=== PATIENT | female | born 1995 | race Caucasian/White ===

== ENCOUNTER 2018-12-13 20:48 | Inpatient (IN) | payer BC, MEDICAID ==
--- NOTE | 2018-12-13 21:38 | ED ---
Psychiatric Complaint - HPI Summary HPI Summary: Patient is a 23 y/o F presenting to ED for SI. Patient's parents are in town, patient states she was "not happy" as a result. She states that she was not able to speak to her parents, she is unsure if she can trust her parents, and if "they want what is best for me". Patient is not a student, does not work. She states, "I just feel really sad, that no one likes me and I wasn't meant to be born". Patient has had these feelings for the past few days. She denies previous episodes of similar Sx.(Father later reports that pt has prior attempt with overdose). She was brought to ED by father, she claims to be unsure as to why he brought her here. SI reported. When patient was asked about plan of suicide, patient is not responsive to question and stares at provider. Pt whispers other answers to questions. No Hx of asthma, thyroid problems, diabetes. PMHx of bipolar disorder, and patient is followed by Dr. Lazaro. PSHx of appendectomy. Patient takes lithium, seroquel, rexulti. Patient denies smoking, alcohol usage, substance usage. FMHx of mental health issues, grandmother on father's side by suicide. Per triage, "per father, patient has been having suicidal thoughts today with history of same and x1 attempt. father states she said she didn't want to be here, she didn't want to be in her body. patient is not very forthcoming with information, flat affect. states she's bipolar." Home medications and allergies are reviewed. Patient is agreeable with father coming into ED, she does not bar anyone from coming into ED. Home Medications Brexpiprazole (NF) [Rexulti 3 mg tab (NF)] 3 mg PO DAILY 12/13/18 [History Confirmed 12/13/18] [place] Carbonate TAB* 600 mg PO DAILY 12/13/18 [History Confirmed 12/13/18] QUEtiapine TAB* [Seroquel 300 MG TAB*] 900 mg PO DAILY 12/13/18 [History Confirmed 12/13/18] buPROPion TAB* [Wellbutrin TAB*] 50 mg PO DAILY 12/13/18 [History Confirmed ] Allergies Allergy/AdvReac Type Severity Reaction Status Date / Time shellfish derived Allergy Hives Verified 12/13/18 21:02 - History Of Current Complaint Chief Complaint: EDSuicidal Hx Obtained From: Patient, Family/Renal Social Worker - father Hx From Patient Unobtainable Due To: Altered Mental Status - mental affect, only stares at provider for many questions. LEVEL 5 CAVEAT ?: No Onset/Duration: Lasting Days, Still Present Timing: Days - past few days Severity Initially: Moderate Severity Currently: Severe Character: Depressed Aggravating Factor(s): Nothing Alleviating Factor(s): Nothing Associated Signs And Symptoms: Positive: Social Withdrawal Related History: Positive For: Prior Psychiatric Issues - bipolar, hx prior suicide attempt Has Suicidal: Reports: Thoughts, With A Plan - when questioned about plan, patient is unresponsive to provider., Has Prior Attempt(s) Recent Stressor(s): parents visiting from [place] - Risk Factor(s) Completed Suicide Risk Factors: White [place], Past Suicide Attempt - Allergies/Home Medications Allergies/Adverse Reactions: Allergies Allergy/AdvReac Type Severity Reaction Status Date / Time aripiprazole [From [facility]] Allergy See Comment Verified 12/14/18 16:30 shellfish derived Allergy Hives Verified 12/13/18 21:02 Home Medications: Home Medications Brexpiprazole (NF) [Rexulti 3 mg tab (NF)] 3 mg PO DAILY 12/13/18 [History Confirmed 12/13/18] [place] Carbonate TAB* 600 mg PO DAILY 12/13/18 [History Confirmed 12/13/18] QUEtiapine TAB* [Seroquel 300 MG TAB*] 900 mg PO DAILY 12/13/18 [History Confirmed 12/13/18] buPROPion TAB* [Wellbutrin TAB*] 50 mg PO DAILY 12/13/18 [History Confirmed ] PMH/Surg Hx/FS Hx/Imm Hx Previously Healthy: No Endocrine/Hematology History: Denies: Hx Diabetes, Hx Thyroid Disease Respiratory History: Denies: Hx Asthma Psychiatric History: Reports: Hx Bipolar Disorder, Hx Suicide Attempt - Surgical History Surgery Procedure, Year, and Place: appendectormy Infectious Disease History: No Infectious Disease History: Denies: Traveled Outside the [place] in Last 30 Days - Family History Known Family History: Positive: Other - FMHx of suicide, grandmother on father' s side - Social History Alcohol Use: None Substance Use Type: Reports: None Smoking Status (MU): Never Smoked Tobacco Review of Systems Negative: Fever - on vitals, temp is 98.8 F Psychological: Other - POSITIVE - SI All Other Systems Reviewed And Are Negative: No - Comments Additional Review of Systems Comments: LEVEL 5 CAVEAT. Pt stares at provider for many questions. Whispers answers to other questions. Physical Exam - Summary Physical Exam Summary: Appearance: Well-appearing, no pain distress, well-nourished, stares, tears roll down face when asked questions, whispers some answers Skin: Warm, color reflects adequate perfusion, dry Head: Normal Head/Face inspection, atraumatic Eyes: Conjunctiva clear ENT: Normal inspection Neck: Supple, no nodes, no JVD Respiratory: Lungs clear, normal breath sounds, no respiratory distress Cardio: RRR, No murmur, pulses normal, brisk capillary refill Abdomen: Soft, nontender Bowel sounds: Present Musculoskeletal: Strength Intact/ROM intact, no calf tenderness, no edema. Psychological: Patient stares ahead while talking, has a flat affect. She whispers when talking and is slow to respond to questions. She is reluctant to answer questions. +SI, no HI. Tearful Neuro: Alert, muscle tone normal, no focal deficit, ambulates without limp Triage Information Reviewed: Yes Vital Signs On Initial Exam: Initial Vitals Temp Pulse Resp BP Pulse Ox 98.8 F 92 16 133/80 99 12/13/18 20:54 12/13/18 20:54 12/13/18 20:54 12/13/18 20:54 12/13/18 20:54 Vital Signs Reviewed: Yes Diagnostics - Vital Signs Vital Signs Temp Pulse Resp BP Pulse Ox 12/13/18 20:54 98.8 F 92 16 133/80 99 - Laboratory Result Diagrams: 12/13/18 22:00 12/13/18 22:00 Lab Statement: Any lab studies that have been ordered have been reviewed, and results considered in the medical decision making process. Re-Evaluation - Re-Evaluation First Eval Re-Evaluation Time: 22:46 Change: Unchanged Comment: Patient is medically cleared at this time, changed from 1 to 1 observation to constant. Second Eval Re-Evaluation Time: 01:15 Change: Unchanged Comment: Father remains with pt. Pt continues with bland affect, minimal verbalization. Father and pt advised of mental health process, and mental hygiene law. Pt remains on constant observation. Course/Dx - Course Course Of Treatment: Patient is a 23 y/o F presenting to ED for SI. Patient's parents are in town, patient states she was "not happy" as a result. She states that she was not able to speak to her parents, she is unsure if she can trust her parents, and if "they want what is best for me". Patient is not a student, does not work. She states, "I just feel really sad, that no one likes me and I wasn't meant to be born". Patient has had these feelings for the past few days. She denies previous episodes of similar Sx, however father reports past suicide attempt and long hx treatment for bipolar. She was brought to ED by father, she claims to be unsure as to why he brought her here. SI reported, when patient was asked about plan of suicide, patient is not responsive, just stares at provider. No Hx of asthma, thyroid problems, diabetes. PMHx of bipolar disorder, patient is followed by Dr. Lazaro. PSHx of appendectomy. Patient takes lithium, seroquel, rexulti. Patient denies smoking, alcohol usage, substance usage. FMHx of mental health issues, grandmother on father's side by suicide. Per triage, "per father, patient has been having suicidal thoughts today with history of same and x1 attempt. father states she said she didn't want to be here, she didn't want to be in her body. patient is not very forthcoming with information, flat affect. states she's bipolar.". On physical exam, Patient stares ahead while talking, has a flat affect. She whispers when talking and is slow to respond to questions. She is reluctant to answer questions. Is tearful. Labs showed glucose 123, TSH 0.61, Beta HCG < 0.6. Tox screen showed [place] < 0.10. Patient is medically cleared at this time, changed from 1 to [address] Suh is to be admitted involuntary status for depression and bipolar disease. Pt has remained calm in the ED. Once on U, pt will be in locked unit, in a safe room. Pt may be changed from constant observation to q 15 minute checks. - Differential Dx/Clinical Impression Differential Diagnosis/HQI/PQRI: Positive: Acute Psychosis, Bipolar Disorder, Depression, Suicidal Ideation Provider Diagnosis: Suicidal ideation, Depression, History of bipolar disorder Discharge - Sign-Out/Discharge Documenting (check all that apply): Patient Departure - Discharge Plan Condition: Stable Disposition: PSYCHIATRIC FACILITY-[facility] - Billing Disposition and Condition Condition: STABLE Disposition: Psychiatric Facility [facility] - Attestation Statements Document Initiated by Scribe: Yes Documenting Scribe: ORTIZ ISAACS Provider For Whom Ellen is Documenting (Include Credential): JAZZY RDZ MD Scribe Attestation: ORTIZ Narayan, scribed for JAZZY RDZ MD on 12/24/18 at 0716. Scribe Documentation Reviewed: Yes Provider Attestation: The documentation as recorded by the ORTIZ beltrán accurately reflects the service I personally performed and the decisions made by me, JAZZY RDZ MD Status of Scribe Document: Viewed
[2018-12-13 22:08] LABS: ABS Basophils 0 10^3/ul (0-0.2); ABS Eosinophils 0.1 10^3/ul (0-0.6); ABS Lymphocytes 2.2 10^3/ul (1.0-4.8); ABS Monocytes 0.4 10^3/ul (0-0.8); ABS Neutrophils 4.5 10^3/ul (1.5-7.7); ABS Nucleated RBC 0 10^3/ul; Hematocrit 40 % (33-41); Hemoglobin 13.4 g/dL (12.0-16.0); Lymphocyte % 29.9 %; Mean Corpuscular HGB Conc 33 g/dL (31-36); Mean Corpuscular Hemoglobin 31 pg (27-31); Mean Corpuscular Volume 94 fL (80-97); Mean Platelet Volume 8.8 fL (7.4-10.4); Nucleated Red Blood Cells % 0; Platelet Count 248 10^3/uL (150-450); Red Blood Count 4.27 10^6 /uL (3.70-4.87); Red Cell Distribution Width 14 % (10.5-15); White Blood Count 7.2 10^3/uL (3.5-10.8)
[2018-12-13 22:22] LABS: ALT 8 U/L (7-52); AST 14 U/L (13-39); Albumin/Globulin Ratio 1.3 (1-3); Alkaline Phosphatase 62 U/L (34-104); Anion Gap 8 mmol/L (2-11); BUN/Creatinine Ratio 18.3 (8-20); Blood Urea Nitrogen 17 mg/dL (6-24); CO2 Carbon Dioxide 25 mmol/L (22-32); Calcium 9.5 mg/dL (8.6-10.3); Chloride 107 mmol/L (101-111); EGFR African American 90.4 (>60); EGFR Non-African American 74.7 (>60); Globulin 3.2 g/dL (2-4); Glucose 123 mg/dL (70-100); Potassium 4.2 mmol/L (3.5-5.0); Sodium 140 mmol/L (135-145); Total Protein 7.2 g/dL (6.4-8.9)
[2018-12-13 22:30] LABS: HCG Pregnancy < 0.60 mIU/mL
[2018-12-13 22:39] LABS: Acetaminophen < 15 mcg/mL; Alcohol < 10 mg/dL (<10); Lithium < 0.10 mmol/L (0.6-1.2); Salicylate < 2.50 mg/dL (<30)
[2018-12-13 22:53] LABS: TSH (Thyroid Stimulating Horm) 0.61 mcIU/mL (0.34-5.60)
[2018-12-14] MEDS ORDERED: Al Hydrox/Mg Hydrox/Simet LIQ* 30 ML UDC PO PRN (04:35)
[2018-12-14] MEDS: Vitamin THERAPEUTIC TAB PO SCH (10:38)
[2018-12-14] MEDS: Acetaminophen TAB* 325 MG PO PRN (22:07)
[2018-12-14] MEDS: QUEtiapine TAB* 300 MG PO SCH (22:23)
[2018-12-14] MEDS: Lithium Carbonate TAB* 300 MG PO SCH (22:24)
--- NOTE | 2018-12-15 00:14 | HP ---
HISTORY AND PHYSICAL: DATE OF ADMISSION: 12/14/18 IDENTIFYING DATA: Claudette is a 23-year-old, single, employed, domiciled, female, who was referred by her father after she expressed suicidal ideation and she could not contract for safety. She was admitted on emergency status. SOURCE OF INFORMATION: The patient is uncooperative with answering questions. This note is based solely on review of admission data. HISTORY OF PRESENT ILLNESS: The patient's aunt who lives in [facility] became aware that the patient was not doing well, that she had not been sleeping for days, had been acting manic, going on shopping spree, getting numerous tattoos and not paying her rent and not going to work. She informed the patient's father who lives in [place]. The patient's father came to [facility] and found the patient rather depressed, tearful, not talking to him until yesterday when she told her father that "she was leaving because she cannot live in her body anymore," which prompted the father to give her the choice to either him calling 911 or driving her to the hospital. The patient reportedly agreed to have her father transport her. The patient's father reported to the program strategist that the patient has a long history of mental illness and that she is diagnosed with bipolar disorder. She has had numerous hospitalizations and she has a history of nonadherence with keeping appointments with therapists and psychiatrists and taking prescribed medications. PAST PSYCHIATRIC HISTORY: The patient's father reported that the patient has had 4 inpatient psychiatric admission starting at age 21. The most recent admission was last January 2018. The patient has had 2 admissions at [facility] in [place] and 2 others at [facility]. She had also attended a [facility] program in [place], [place] and a long-term facility called [facility] in [place], [place]. The patient has outpatient care at [facility] with Dr. Braden Boo. She is prescribed Rexulti 3 mg daily, lithium 600 mg p.o. b.i.d., quetiapine 600 mg at bedtime, and Wellbutrin XL 300 mg daily. The patient's father is aware that the patient took herself off medications completely about 2 weeks ago and that she had missed several appointments with the psychiatrist. SUICIDE/HOMICIDE HISTORY: The patient's father relates that as a teen, she had a history of self-cutting behavior and one previous suicide attempt by taking an overdose of Tylenol. The patient's father was not aware of any history of trauma or abuse. PAST MEDICAL HISTORY: The patient's father denies that she has any active medical problems, any history of head trauma with loss of consciousness, seizures, or surgeries. He does not believe that she has a primary care physician locally. REVIEW OF MEDICAL SYMPTOMS: Negative. PHYSICAL EXAMINATION The patient declined. We will re-attempt. FAMILY HISTORY: There is no given family history of psychiatric illnesses or completed suicide. SUBSTANCE ABUSE HISTORY: Unknown. Urine toxicology was negative. PERSONAL AND SOCIAL HISTORY: The patient's parents were . The patient' s mother when the patient was about 2 years old. The patient's father subsequently remarried. The patient grew up with her father, stepmother and a stepsister. The patient graduated from high school and completed 2 years of college before having a psychotic break that led to her first hospitalization. She was diagnosed with bipolar at the time and she has been recurrently in crisis since that time. 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 MENTAL STATUS EXAMINATION: A full mental status exam could not be completed given the patient's lack of cooperation. She is an averagely built 23-year-old white female with a nose ring and some lesion of facial acne and dark hair. She makes intense eye contact. She appears to be responding to internal stimuli as evidenced by her laughing to herself sometimes. She exhibits some degree of psychomotor retardation. In rare instances, she nodded to answer questions. Her affect is irritable, mood is dysphoric. She is alert, unable to assess orientation. She did not answer question about suicidality or homicidality. She, at some point, got up and left the interview room without explanation. SUMMARY: A 23-year-old female with extensive past psychiatric history, previous psychiatric hospitalizations, previous diagnosis of bipolar disorder, history of nonadherence with outpatient psychiatric treatment, who was referred by her father because of suicidal ideation and inability to contract for safety. Medical history is unremarkable. There is no information as to whether or not the patient uses any substance. Her urine drug screen was negative for all the tested substances. There is no given family history of psychiatric illnesses or completed suicide.Stressors are unclear but they should include the patient's history of non-adherence to psychiatric treatment. DIAGNOSTIC IMPRESSIONS: Bipolar 1 disorder, current episode, mixed, severe, with psychotic features. TREATMENT PLAN: Admit to mental health unit, observation level 15-minute checks. Legal status is emergency. Initiate comprehensive milieu, individual and group psychotherapeutic support. Medication management will involve restarting the patient on lithium immediately and confirming the rest of her prescribed medication with Dr. Boo on Sunday. Discharge planning will involve coordination of aftercare with her providers at [facility] and with relatives. [id number]/[facility] #: [id number] ANDRES
[2018-12-15 08:57] LABS: HDL Cholesterol 48.5 mg/dL
[2018-12-15] MEDS ORDERED: BREXPIPRAZOLE 3 MG PO SCH (09:00)
[2018-12-15 09:30] LABS: TSH (Thyroid Stimulating Horm) 1.35 mcIU/mL (0.34-5.60)
[2018-12-15] MEDS: Lithium Carbonate TAB* 300 MG PO SCH ×2 (13:18→22:00)
[2018-12-15] MEDS: Vitamin THERAPEUTIC TAB PO SCH (13:18)
[2018-12-15] MEDS: QUEtiapine TAB* 300 MG PO SCH (21:59)
[2018-12-16] MEDS: Acetaminophen TAB* 325 MG PO PRN (04:44)
[2018-12-16] MEDS ORDERED: BREXPIPRAZOLE 3 MG PO SCH (09:00)
[2018-12-16] MEDS: Vitamin THERAPEUTIC TAB PO SCH (11:10)
[2018-12-16] MEDS: Lithium Carbonate TAB* 300 MG PO SCH ×2 (11:11→21:18)
--- NOTE | 2018-12-16 15:49 | PN ---
Subjective - Subjective Date of Service: 12/16/18 Service Type: 62096 Hosp care 25 min moderate complexity Subjective: Patient irritable and initially refusing to meet with treatment providers. She agreed to meet about "how to get out of here." She endorses anger at her parents for bringing to a hospital as she vowed to never do so again. She states "I'm not bipolar!" When asked about her mood, she states "my boyfriend was supposed to visit today." She denies alcohol or drug use, despite collateral information to the contrary. She endorses need for nicotine replacement due to vaping "a lot." She has yet to provide a urine specimen. During conversation, patient is labile and responds to internal stimuli. She denies history of abuse or trauma. She denies offer of medication adjustments, other than desire for adderall for concentration and distractibility. Objective - General Observations Appearance: Disheveled Appears Stated Age: Yes Stature: Thin Posture: WNL Eye Contact: Avoidant Behavior/Activity: Peculiar - Interaction Observations Attitude Towards Examiner: Defensive, Evasive, Mistrustful Stated Mood: Elevated Affect: Incongruent Speech Pattern/Tone: Delayed, Quiet Volume Thought Process: Filght of Ideas, Impoverished Perception: WNL Thought Content: Paranoid, Grandiose Thought Process: Lethality: Paranoid Ideation Hallucination Type: Auditory Delusion Type: Denies - Cognitive Function Orientation: A&O x 4 Level of Consciousness: Alert Cognition: WNL Estimated Intelligence: Normal Insight: Difficulty Acknowledging Presence of Psyciatric Problems Judgment Within Normal Limits: No Ability to Make Reasonable Decisions: Serverely Impaired - Medication Compliance Cooperative with Inpatient Medication Regimen: Partial - Group Participation Participates in Group Activities: No Assessment - Assessment Merits Inpatient Hospitalization: For Immediate Safety, For Stabilization Inpatient DSM-V Dx: F31.64 Clinical Impression: 23yo wf with extensive psychiatric history and multiple admissions in [facility] due to bipolar I d/o. She has been non-adherent to outpatient treatment and was referred to ED by her father due to suicidal ideation. She is grossly disorganized and lacks capacity to make informed medical decisions. She merits hospitalization for immediate safety and stabilization. Plan - Plan Treatment Plan: Name: JUN WHEELER Birthdate: 1995 [id number] continue acute intensive psychiatric treatment. DC rexulti due patient's refusal and multiple antipsychotics, add lorazepam 0.5mg Continued Medication Management: Start Medication Medications: Current Medications Acetaminophen (Tylenol Tab*) 650 mg PO Q4H PRN PRN Reason: PAIN or TEMP > 101 F Last Admin: 12/16/18 04:44 Dose: 650 mg Al Hydrox/Mg Hydrox/Simethicone (Maalox Plus*) 30 ml PO Q4H PRN PRN Reason: INDIGESTION [place] Carbonate ([place] Carbonate Tab*) 600 mg PO BID [facility] Last Admin: 12/16/18 11:11 Dose: Not Given Multivitamins (Theragran Tab*) 1 tab PO DAILY [facility] Last Admin: 12/16/18 11:10 Dose: 1 tab Nicotine (Nicotine Patch 21 Mg/24 Hr*) 1 patch TRANSDERM DAILY [facility] Nicotine Polacrilex (Nicotine Gum*) 2 mg PO Q2H PRN PRN Reason: CRAVING Pharmacy Profile Note (Nicotine Patch Removal Note*) 1 note FOLLOW UP 2100 JEB Quetiapine Fumarate (Seroquel Tab*) 600 mg PO BEDTIME [facility] Last Admin: 12/15/18 21:59 Dose: 600 mg - Discharge Plan Discharge Plan: Inpatient Hospitalization
[2018-12-16] MEDS: Nicotine GUM* 2 MG PO PRN ×2 (17:15→19:59)
[2018-12-16] MEDS: Nicotine PATCH 21 MG/24 HR* PATCH TRANSDERM SCH (17:44)
[2018-12-16] MEDS: QUEtiapine TAB* 300 MG PO SCH (21:17)
[2018-12-16] MEDS: Nicotine Patch Removal NOTE FOLLOW UP SCH (21:18)
[2018-12-17] MEDS: Vitamin THERAPEUTIC TAB PO SCH (09:32)
[2018-12-17] MEDS: Nicotine GUM* 2 MG PO PRN ×3 (09:33→20:40)
[2018-12-17] MEDS: Lithium Carbonate TAB* 300 MG PO SCH ×2 (09:34→20:38)
[2018-12-17] MEDS: Nicotine PATCH 21 MG/24 HR* PATCH TRANSDERM SCH (09:34)
--- NOTE | 2018-12-17 12:17 | PN ---
Subjective - Subjective Date of Service: 12/17/18 Service Type: 05621 Hosp care 25 min moderate complexity Subjective: Patient is sitting in milieu eating lunch upon approach. She presents as euphoric and disorganized. She endorses liking feeling of diana. She is incongruent with information about significant other. She states that her boyfriend has a crush on her cousin and that they were physically intimate. She later states that he is "her rock" in regards to support. She presents with impish grin while stating she "wants to stab a person in the eye." When asked about a potential target, she looks around the room and points at a male peer to recently arrived to the unit. She is inconsistent about reports of marijuana use. She states "I think I should go off the meds except for seroquel for sleep." Objective - General Observations Appearance: Disheveled Appears Stated Age: Yes Stature: Thin Posture: WNL Eye Contact: Intermittent Behavior/Activity: Peculiar - Interaction Observations Attitude Towards Examiner: Seductive Stated Mood: Euphoric Affect: Incongruent, Bright Speech Pattern/Tone: Delayed, Quiet Volume Thought Process: Filght of Ideas, Racing Perception: Illusions Thought Content: Paranoid, Grandiose Thought Process: Lethality: Paranoid Ideation Hallucination Type: Auditory Delusion Type: Thought Insertion, Thought Broadcasting - Cognitive Function Orientation: A&O x 4 Level of Consciousness: Alert Cognition: WNL Estimated Intelligence: Normal Insight: Difficulty Acknowledging Presence of Psyciatric Problems Judgment Within Normal Limits: No Ability to Make Reasonable Decisions: Serverely Impaired - Medication Compliance Cooperative with Inpatient Medication Regimen: Partial - Group Participation Participates in Group Activities: Partial Assessment - Assessment Merits Inpatient Hospitalization: For Immediate Safety, For Stabilization, To Initiate Treatment Inpatient DSM-V Dx: F31.64 Clinical Impression: 23yo wf with extensive psychiatric history and multiple admissions in [facility] due to bipolar I d/o. She has been non-adherent to outpatient treatment and was referred to ED by her father due to suicidal ideation. She is grossly disorganized and lacks capacity to make informed medical decisions. She merits hospitalization for immediate safety and stabilization. Plan - Plan Treatment Plan: Name: JUN WHEELER Birthdate: 1995 [id number] continue acute intensive psychiatric treatment. convert to 2PC status. change quetiapine to XR formulation. continue other medications, as ordered. consider treatment over objection if no improvement. Continued Medication Management: Different Medication Medications: Current Medications Acetaminophen (Tylenol Tab*) 650 mg PO Q4H PRN PRN Reason: PAIN or TEMP > 101 F Last Admin: 12/16/18 04:44 Dose: 650 mg Al Hydrox/Mg Hydrox/Simethicone (Maalox Plus*) 30 ml PO Q4H PRN PRN Reason: INDIGESTION [place] Carbonate ([place] Carbonate Tab*) 600 mg PO BID [facility] Last Admin: 12/17/18 09:34 Dose: Not Given Lorazepam (Ativan Tab(*)) 0.5 mg PO Q6H PRN PRN Reason: anxiety/agitation Multivitamins (Theragran Tab*) 1 tab PO DAILY [facility] Last Admin: 12/17/18 09:32 Dose: 1 tab Nicotine (Nicotine Patch 21 Mg/24 Hr*) 1 patch TRANSDERM DAILY [facility] Last Admin: 12/17/18 09:34 Dose: Not Given Nicotine Polacrilex (Nicotine Gum*) 2 mg PO Q2H PRN PRN Reason: CRAVING Last Admin: 12/17/18 09:33 Dose: 2 mg Pharmacy Profile Note (Nicotine Patch Removal Note*) 1 note FOLLOW UP 2100 [facility] Last Admin: 12/16/18 21:18 Dose: Not Given Quetiapine Fumarate (Seroquel Tab*) 600 mg PO BEDTIME [facility] Last Admin: 12/16/18 21:17 Dose: 600 mg - Discharge Plan Discharge Plan: Inpatient Hospitalization Outpatient Program: [facility]
[2018-12-17] MEDS: LORazepam TAB(*) 0.5 MG PO PRN ×2 (14:15→20:39)
[2018-12-17] MEDS: Acetaminophen TAB* 325 MG PO PRN (15:35)
[2018-12-17] MEDS: Nicotine Patch Removal NOTE FOLLOW UP SCH (19:43)
[2018-12-17] MEDS ORDERED: QUEtiapine XR TAB* 300 MG PO SCH (21:00)
--- NOTE | 2018-12-18 09:45 | PN ---
Subjective - Subjective Date of Service: 12/18/18 Service Type: [id number] Hosp care 35 min high complexity Subjective: Patient presents with mood lability, disorganized thinking and long speech latencies. She endorses AH. She has disruptive in milieu and makes derogatory comments to select peers. Upon approach, she is tearful and reports missing her cat. Manager Case Management discussed treatment over objection process. Patient states "please don't put me on depakote." Patient does not answer my inquiry as to previous experience with the medication. She states she has been "addicted" to adderall in the past due to appetite suppression. Topic of conversation is tangential from there. Objective - General Observations Appearance: Disheveled Appears Stated Age: Yes Stature: Thin Posture: WNL Eye Contact: Intense Behavior/Activity: Peculiar - Interaction Observations Attitude Towards Examiner: Anxious, Mistrustful Stated Mood: Dysphoric Affect: Labile Speech Pattern/Tone: Delayed, Quiet Volume Thought Process: Disorganized, Tangential Perception: WNL Thought Content: Preoccupation/Ruminations, Depressive Hallucination Type: Auditory Delusion Type: Denies - Cognitive Function Orientation: A&O x 4 Level of Consciousness: Alert Cognition: WNL Estimated Intelligence: Normal Insight: Difficulty Acknowledging Presence of Psyciatric Problems Judgment Within Normal Limits: No Ability to Make Reasonable Decisions: Serverely Impaired - Medication Compliance Cooperative with Inpatient Medication Regimen: Partial - Group Participation Participates in Group Activities: No Assessment - Assessment Merits Inpatient Hospitalization: For Immediate Safety, For Stabilization Inpatient DSM-V Dx: F31.64 Clinical Impression: 23yo wf with extensive psychiatric history and multiple [facility] in [facility] due to bipolar I d/o. She has been non-adherent to outpatient treatment and was referred to ED by her father due to suicidal ideation. She is grossly disorganized and lacks capacity to make informed medical decisions. The patient remains noncompliant with medications and still demonstrates clear signs of affective psychosis. We will initiate the T.O.O. process and await a court ruling to force-medicate for safety. Patient is at risk to herself and others if discharged secondary to dangerous and psychotic thought process. Plan - Plan Treatment Plan: Name: JUN WHEELER Birthdate: 1995 [id number] continue acute intensive psychiatric treatment. convert to 2PC status. increase quetiapine XR to 800mg. add haloperidol 5mg q6h prn agitation. continue other medications, as ordered. pursue treatment over objection. Continued Medication Management: Consider Medication Medications: Current Medications Acetaminophen (Tylenol Tab*) 650 mg PO Q4H PRN PRN Reason: PAIN or TEMP > 101 F Last Admin: 12/17/18 15:35 Dose: 650 mg Al Hydrox/Mg Hydrox/Simethicone (Maalox Plus*) 30 ml PO Q4H PRN PRN Reason: INDIGESTION [place] Carbonate ([place] Carbonate Tab*) 600 mg PO BID [facility] Last Admin: 12/17/18 20:38 Dose: Not Given Lorazepam (Ativan Tab(*)) 0.5 mg PO Q6H PRN PRN Reason: anxiety/agitation Last Admin: 12/17/18 20:39 Dose: 0.5 mg Multivitamins (Theragran Tab*) 1 tab PO DAILY [facility] Last Admin: 12/17/18 09:32 Dose: 1 tab Nicotine (Nicotine Patch 21 Mg/24 Hr*) 1 patch TRANSDERM DAILY [facility] Last Admin: 12/17/18 09:34 Dose: Not Given Nicotine Polacrilex (Nicotine Gum*) 2 mg PO Q2H PRN PRN Reason: CRAVING Last Admin: 12/17/18 20:40 Dose: 2 mg Pharmacy Profile Note (Nicotine Patch Removal Note*) 1 note FOLLOW UP 2100 [facility] Last Admin: 12/17/18 19:43 Dose: Not Given Quetiapine Fumarate (Seroquel Xr Tab*) 600 mg PO BEDTIME [facility] Last Admin: 12/17/18 20:38 Dose: 600 mg - Discharge Plan Discharge Plan: Inpatient Hospitalization
[2018-12-18] MEDS ORDERED: Haloperidol TAB* 5 MG PO PRN (10:29)
[2018-12-18] MEDS: Lithium Carbonate TAB* 300 MG PO SCH ×2 (10:33→20:45)
[2018-12-18] MEDS: Vitamin THERAPEUTIC TAB PO SCH (10:35)
[2018-12-18] MEDS: Nicotine PATCH 21 MG/24 HR* PATCH TRANSDERM SCH (10:35)
[2018-12-18] MEDS: Nicotine GUM* 2 MG PO PRN (14:33)
[2018-12-18] MEDS: LORazepam TAB(*) 0.5 MG PO PRN (15:28)
--- NOTE | 2018-12-18 16:21 | PN ---
BSU: Group Therapy Note - Service Type Service Type: [id number] Group Psychotherapy - Group Participation Patient Participating in Group: Yes Level of Group Participation: Attentive Relatedness to Group: Other - Claudette behaved in a bizarre manner, eventually leaving early to "take an Ativan." She came wrapped in a blanket and made some off-topic comments.
[2018-12-18] MEDS: Nicotine Patch Removal NOTE FOLLOW UP SCH (20:21)
[2018-12-18] MEDS: QUEtiapine XR TAB* 200 MG PO SCH (20:46)
[2018-12-19] MEDS: Vitamin THERAPEUTIC TAB PO SCH (09:17)
[2018-12-19] MEDS: Lithium Carbonate TAB* 300 MG PO SCH ×2 (09:17→20:20)
[2018-12-19] MEDS: Nicotine PATCH 21 MG/24 HR* PATCH TRANSDERM SCH (09:17)
--- NOTE | 2018-12-19 11:46 | PN ---
Subjective - Subjective Date of Service: 12/19/18 Service Type: 06759 Hosp care 35 min high complexity Subjective: Nursing Report: Slept overnight without incident. Not Attending group activities. CC: "I thought about killing myself" Patient was seen and evaluated by this provider in the common room. According to the EMR she took her medications this morning and overnight. She was seen sleeping in bed before encounter. She reported hearing voices that whisper her name. She reported being in love with a melba named Christian and that she still thinks about the last melba she is in love with. She reported being in the hospital after expressing that she told her parents that she was a virus and needed to and be put down like a ill dog. The patient reported she had a plan to kill herself by getting heroin and overdosing. Objective - General Observations Appearance: Disheveled Appears Stated Age: Yes Stature: WNL Posture: WNL Eye Contact: Intense, Intermittent Behavior/Activity: WNL - Interaction Observations Attitude Towards Examiner: Cooperative, Mistrustful Stated Mood: Dysphoric Speech Pattern/Tone: Clear Thought Process: Loose Associations Thought Content: Depressive Thought Process: Lethality: Suicidal Planning Hallucination Type: Auditory Delusion Type: Persecution - Cognitive Function Orientation: A&O x 4 Level of Consciousness: Awake Cognition: WNL Insight: Difficulty Acknowledging Presence of Psyciatric Problems Judgment Within Normal Limits: No Ability to Make Reasonable Decisions: Serverely Impaired - Medication Compliance Cooperative with Inpatient Medication Regimen: Partial - Group Participation Participates in Group Activities: No Assessment - Assessment Inpatient DSM-V Dx: F31.64 Clinical Impression: 23yo wf with extensive psychiatric history and multiple admissions in [facility] due to bipolar I d/o. She has been non-adherent to outpatient treatment and was referred to ED by her father due to suicidal ideation. She is grossly disorganized and lacks capacity to make informed medical decisions. The patient remains noncompliant with medications and still demonstrates clear signs of affective psychosis. We will initiate the T.O.O. process and await a court ruling to force-medicate for safety. Patient is at risk to herself and others if discharged secondary to dangerous and psychotic thought process. Plan - Plan Treatment Plan: Name: JUN WHEELER Birthdate: 1995 [id number] #Patient requires inpatient psychiatric hospitalization at this time. Will continue to monitor for safety every 15 minutes on the unit. #2PC # Continue current medications Vital Signs Temp Pulse Resp BP Pulse Ox 97.8 F 57 16 101/54 99 12/15/18 08:09 12/15/18 08:09 12/18/18 19:15 12/15/18 08:09 12/15/18 08:09 Sodium 140 mmol/L (135-145) 12/13/18 22:00 Potassium 4.2 mmol/L (3.5-5.0) 12/13/18 22:00 BUN 17 mg/dL (6-24) 12/13/18 22:00 Creatinine 0.93 mg/dL (0.51-0.95) 12/13/18 22:00 Hemoglobin A1c 5.1 % (4.0-5.6) 12/15/18 08:31 Calcium 9.5 mg/dL (8.6-10.3) 12/13/18 22:00 AST 14 U/L (13-39) 12/13/18 22:00 ALT 8 U/L (7-52) 12/13/18 22:00 Triglycerides 182 mg/dL 12/15/18 08:31 Cholesterol 172 mg/dL 12/15/18 08:31 LDL Cholesterol 87 mg/dL 12/15/18 08:31 Continued Medication Management: Continue Outpt Medication Medications: Current Medications Acetaminophen (Tylenol Tab*) 650 mg PO Q4H PRN PRN Reason: PAIN or TEMP > 101 F Last Admin: 12/17/18 15:35 Dose: 650 mg Al Hydrox/Mg Hydrox/Simethicone (Maalox Plus*) 30 ml PO Q4H PRN PRN Reason: INDIGESTION Haloperidol (Haldol Tab*) 5 mg PO Q6H PRN PRN Reason: AGITATION [place] Carbonate ([place] Carbonate Tab*) 600 mg PO BID [facility] Last Admin: 12/19/18 09:17 Dose: 600 mg Lorazepam (Ativan Tab(*)) 0.5 mg PO Q6H PRN PRN Reason: anxiety/agitation Last Admin: 12/18/18 15:28 Dose: 0.5 mg Multivitamins (Theragran Tab*) 1 tab PO DAILY [facility] Last Admin: 12/19/18 09:17 Dose: Not Given Nicotine (Nicotine Patch 21 Mg/24 Hr*) 1 patch TRANSDERM DAILY [facility] Last Admin: 12/19/18 09:17 Dose: Not Given Nicotine Polacrilex (Nicotine Gum*) 2 mg PO Q2H PRN PRN Reason: CRAVING Last Admin: 12/18/18 14:33 Dose: 2 mg Pharmacy Profile Note (Nicotine Patch Removal Note*) 1 note FOLLOW UP 2100 [facility] Last Admin: 12/18/18 20:21 Dose: Not Given Quetiapine Fumarate (Seroquel Xr Tab*) 800 mg PO BEDTIME [facility] Last Admin: 12/18/18 20:46 Dose: 800 mg - Discharge Plan Discharge Plan: Inpatient Hospitalization
[2018-12-19] MEDS: LORazepam TAB(*) 0.5 MG PO PRN (12:02)
[2018-12-19] MEDS: QUEtiapine XR TAB* 200 MG PO SCH (20:20)
[2018-12-19] MEDS: Nicotine Patch Removal NOTE FOLLOW UP SCH (20:52)
[2018-12-20] MEDS: Lithium Carbonate TAB* 300 MG PO SCH ×2 (10:23→20:17)
[2018-12-20] MEDS: Vitamin THERAPEUTIC TAB PO SCH (10:23)
[2018-12-20] MEDS: Nicotine PATCH 21 MG/24 HR* PATCH TRANSDERM SCH (10:23)
--- NOTE | 2018-12-20 11:38 | PN ---
Subjective - Subjective Date of Service: 12/20/18 Service Type: [id number] Hosp care 35 min high complexity Subjective: Patient pleasant upon approach. This morning, she stated she would like to be discharged. She asked about injectable medication and investment underwriter discussed paliperidone. She reports history of akathesia; therefore will trial oral paliperidone prior to injection. Family meeting held with patient and her father, Harshil. Patient dysphoric, tearful at times. Father is supportive and knowledgeable about patient's mental health history. She minimized collateral from her father in regards to decompensation. She expresses desire to return to [facility] and employment. All supported this plan when she is stabilized. We discussed potential of cancelling TOO if patient continues to be medication compliant. Objective - General Observations Appearance: Well Groomed Stature: Thin Posture: Slumped Eye Contact: Intermittent Behavior/Activity: WNL - Interaction Observations Attitude Towards Examiner: Cooperative Stated Mood: Dysphoric Affect: Labile Speech Pattern/Tone: Clear, Quiet Volume Thought Process: Tangential, Racing Perception: WNL Thought Content: Paranoid Thought Process: Lethality: Paranoid Ideation Hallucination Type: Auditory Delusion Type: Thought Broadcasting - Cognitive Function Orientation: A&O x 4 Level of Consciousness: Alert Cognition: WNL Estimated Intelligence: Normal Insight: Difficulty Acknowledging Presence of Psyciatric Problems Judgment Within Normal Limits: No Ability to Make Reasonable Decisions: Serverely Impaired - Medication Compliance Cooperative with Inpatient Medication Regimen: Yes - Group Participation Participates in Group Activities: Partial Assessment - Assessment Merits Inpatient Hospitalization: For Immediate Safety, For Stabilization, Consolidate Improvements Inpatient DSM-V Dx: F31.64 Clinical Impression: 23yo wf with extensive psychiatric history and multiple admissions in [facility] due to bipolar I d/o. She has been non-adherent to outpatient treatment and was referred to ED by her father due to suicidal ideation and psychosis. She is grossly disorganized and lacks capacity to make informed medical decisions. She was informed of team pursuing Treatment Over Objection and has since been medication compliant. Patient merits hospitalization for immediate safety and stabilization. Plan - Plan Treatment Plan: Name: JUN WHEELER Birthdate: 1995 [id number] continue acute intensive psychiatric treatment. change quetiapine to paliperidone, consider Invega Sustenna if patient tolerates oral trial. continue other medications, as ordered. obtain lithium level in AM. discharge planning to include father and outpatient providers. Continued Medication Management: Start Medication Medications: Current Medications Acetaminophen (Tylenol Tab*) 650 mg PO Q4H PRN PRN Reason: PAIN or TEMP > 101 F Last Admin: 12/17/18 15:35 Dose: 650 mg Al Hydrox/Mg Hydrox/Simethicone (Maalox Plus*) 30 ml PO Q4H PRN PRN Reason: INDIGESTION Haloperidol (Haldol Tab*) 5 mg PO Q6H PRN PRN Reason: AGITATION [place] Carbonate ([place] Carbonate Tab*) 600 mg PO BID [facility] Last Admin: 12/20/18 10:23 Dose: 600 mg Lorazepam (Ativan Tab(*)) 0.5 mg PO Q6H PRN PRN Reason: anxiety/agitation Last Admin: 12/19/18 12:02 Dose: 0.5 mg Multivitamins (Theragran Tab*) 1 tab PO DAILY [facility] Last Admin: 12/20/18 10:23 Dose: 1 tab Nicotine (Nicotine Patch 21 Mg/24 Hr*) 1 patch TRANSDERM DAILY [facility] Last Admin: 12/20/18 10:23 Dose: Not Given Nicotine Polacrilex (Nicotine Gum*) 2 mg PO Q2H PRN PRN Reason: CRAVING Last Admin: 12/18/18 14:33 Dose: 2 mg Paliperidone (Invega Er Tab*) 6 mg PO DAILY [facility] Pharmacy Profile Note (Nicotine Patch Removal Note*) 1 note FOLLOW UP [facility]100 [facility] Last Admin: 12/19/18 20:52 Dose: Not Given - Discharge Plan Discharge Plan: Inpatient Hospitalization
[2018-12-20] MEDS: Paliperidone ER TAB* 6 MG TAB.ER PO SCH (13:26)
[2018-12-20] MEDS: LORazepam TAB(*) 0.5 MG PO PRN (20:20)
[2018-12-20] MEDS: Nicotine Patch Removal NOTE FOLLOW UP SCH (20:21)
[2018-12-21] MEDS: Lithium Carbonate TAB* 300 MG PO SCH ×2 (10:29→21:03)
[2018-12-21] MEDS: Paliperidone ER TAB* 6 MG TAB.ER PO SCH (10:30)
[2018-12-21] MEDS: Vitamin THERAPEUTIC TAB PO SCH (10:30)
[2018-12-21] MEDS: Nicotine PATCH 21 MG/24 HR* PATCH TRANSDERM SCH (10:33)
[2018-12-21] MEDS ORDERED: diPHENhydraMINE PO* 50 MG PO ONE (20:40)
[2018-12-21] MEDS: Nicotine Patch Removal NOTE FOLLOW UP SCH (21:03)
[2018-12-21] MEDS ORDERED: diPHENhydraMINE PO* 25 MG ONE (21:55)
[2018-12-22] MEDS: Lithium Carbonate TAB* 300 MG PO SCH ×2 (10:27→20:20)
[2018-12-22] MEDS: Nicotine PATCH 21 MG/24 HR* PATCH TRANSDERM SCH (10:27)
[2018-12-22] MEDS: Vitamin THERAPEUTIC TAB PO SCH (10:27)
[2018-12-22] MEDS: Paliperidone ER TAB* 6 MG TAB.ER PO SCH (10:27)
[2018-12-22] MEDS: Nicotine Patch Removal NOTE FOLLOW UP SCH (20:18)
[2018-12-22] MEDS ORDERED: diPHENhydraMINE PO* 50 MG PO PRN (21:01)
[2018-12-22] MEDS: Acetaminophen TAB* 325 MG PO PRN (21:09)
[2018-12-23] MEDS: LORazepam TAB(*) 0.5 MG PO PRN ×2 (02:15→22:09)
[2018-12-23] MEDS: Paliperidone ER TAB* 6 MG TAB.ER PO SCH (09:03)
[2018-12-23] MEDS: Vitamin THERAPEUTIC TAB PO SCH (09:03)
[2018-12-23] MEDS: Lithium Carbonate TAB* 300 MG PO SCH ×2 (09:04→20:02)
[2018-12-23] MEDS: Nicotine PATCH 21 MG/24 HR* PATCH TRANSDERM SCH (09:04)
[2018-12-23] MEDS ORDERED: Paliperidone SUSTENNA* 234 MG/1.5 ML IM ONE (10:30)
[2018-12-23] MEDS ORDERED: Polyethylene Glycol 3350* 17 GM PACKET PO PRN (13:10)
[2018-12-23] MEDS ORDERED: Zolpidem TAB* 5 MG PO PRN (16:18)
--- NOTE | 2018-12-23 16:18 | PN ---
Subjective - Subjective Date of Service: 12/23/18 Service Type: 07382 Hosp care 25 min moderate complexity Subjective: Patient is well related and has been in behavioral control over the weekend. patient reports desire to have Invega injection and to be discharged. She is receptive to suggestion to remain in hospital at least overnight to assess effect and solidify discharge planning. She reports diphenhydramine was ineffective for sleep and reports history of efficacy with ambien. Objective - General Observations Appearance: Well Groomed Stature: Thin Posture: WNL Eye Contact: Average Behavior/Activity: WNL - Interaction Observations Attitude Towards Examiner: Cooperative Stated Mood: Euthymic Affect: Full Speech Pattern/Tone: Clear, Appropriate, Normal Volume Thought Process: Coherent, Goal Directed Perception: WNL Thought Content: WNL Hallucination Type: Denies Delusion Type: Denies - Cognitive Function Orientation: A&O x 4 Level of Consciousness: Alert Cognition: WNL Estimated Intelligence: Normal Insight: WNL Judgment Within Normal Limits: Yes - Medication Compliance Cooperative with Inpatient Medication Regimen: Yes - Group Participation Participates in Group Activities: Yes Assessment - Assessment Merits Inpatient Hospitalization: For Immediate Safety, For Stabilization, For Discharge Planning Inpatient DSM-V Dx: F31.64 Clinical Impression: 23yo wf with extensive psychiatric history and multiple admissions in [facility] due to bipolar I d/o. She has been non-adherent to outpatient treatment and was referred to ED by her father due to suicidal ideation and psychosis. She is grossly disorganized and lacks capacity to make informed medical decisions. She was informed of team pursuing Treatment Over Objection and has since been medication compliant. Therefore, TOO was discontinued. Patient merits hospitalization for immediate safety and stabilization. Plan - Plan Treatment Plan: Name: JUN WHEELER Birthdate: 1995 [id number] continue acute intensive psychiatric treatment. may decrease to q30min and allow staff pass. give invega sustenna booster #1 today, stop oral dosing. continue lithium 600mg BID. add zolpidem 5mg qhs prn insomnia. add miralax 17gm daily prn constipation. discharge planning to include father and outpatient providers. Continued Medication Management: Start Medication Medications: Current Medications Acetaminophen (Tylenol Tab*) 650 mg PO Q4H PRN PRN Reason: PAIN or TEMP > 101 F Last Admin: 12/22/18 21:09 Dose: 650 mg Al Hydrox/Mg Hydrox/Simethicone (Maalox Plus*) 30 ml PO Q4H PRN PRN Reason: INDIGESTION Diphenhydramine HCl (Benadryl Po*) 50 mg PO BEDTIME PRN PRN Reason: INSOMNIA Last Admin: 12/22/18 21:10 Dose: 50 mg Haloperidol (Haldol Tab*) 5 mg PO Q6H PRN PRN Reason: AGITATION [place] Carbonate ([place] Carbonate Tab*) 600 mg PO BID [facility] Last Admin: 12/23/18 09:04 Dose: 600 mg Lorazepam (Ativan Tab(*)) 0.5 mg PO Q6H PRN PRN Reason: anxiety/agitation Last Admin: 12/23/18 02:15 Dose: 0.5 mg Multivitamins (Theragran Tab*) 1 tab PO DAILY [facility] Last Admin: 12/23/18 09:03 Dose: 1 tab Nicotine (Nicotine Patch 21 Mg/24 Hr*) 1 patch TRANSDERM DAILY [facility] Last Admin: 12/23/18 09:04 Dose: Not Given Nicotine Polacrilex (Nicotine Gum*) 2 mg PO Q2H PRN PRN Reason: CRAVING Last Admin: 12/18/18 14:33 Dose: 2 mg Pharmacy Profile Note (Nicotine Patch Removal Note*) 1 note FOLLOW UP 2100 [facility] Last Admin: 12/22/18 20:18 Dose: Not Given Polyethylene Glycol/Electrolytes (Miralax*) 17 gm PO DAILY PRN PRN Reason: CONSTIPATION - Discharge Plan Discharge Plan: Inpatient Hospitalization
[2018-12-23] MEDS: Nicotine Patch Removal NOTE FOLLOW UP SCH (20:10)
[2018-12-24] MEDS: Lithium Carbonate TAB* 300 MG PO SCH (09:48)
[2018-12-24] MEDS: Vitamin THERAPEUTIC TAB PO SCH (09:48)
[2018-12-24] MEDS: Nicotine PATCH 21 MG/24 HR* PATCH TRANSDERM SCH (11:17)
[2018-12-24] MEDS: Ondansetron ODT TAB* 4 MG PO PRN ×2 (13:29→20:02)
[2018-12-24] MEDS ORDERED: Zolpidem TAB* 5 MG PO PRN (13:33)
[2018-12-24] MEDS: Nicotine Patch Removal NOTE FOLLOW UP SCH (19:59)
[2018-12-24] MEDS: LORazepam TAB(*) 0.5 MG PO PRN (20:01)
[2018-12-24] MEDS ORDERED: Lithium Carbonate ER* 450 MG TAB.ER PO ONE (21:00)
[2018-12-25] MEDS: Nicotine PATCH 21 MG/24 HR* PATCH TRANSDERM SCH (10:23)
[2018-12-25] MEDS: Ondansetron ODT TAB* 4 MG PO PRN (10:34)
[2018-12-25] MEDS: Vitamin THERAPEUTIC TAB PO SCH (10:35)
[2018-12-25 10:48] VITALS: BP 95/51
--- NOTE | 2018-12-25 11:44 | DCNOTE ---
Subjective - Subjective Service Types: 25727 Hosp DC Day Mgmt simple under 30 min Discharge Date: 12/25/18 Subjective: Patient reports improved sleep last night. She is pleasant and well-related. She denies AH or VH, no perceptual disturbances noted. She denies SI or passive wish. She endorses plan to return to live with family friends on a farm near [place] and looking forward to assisting with the care of animals. She reports intent to refrain from cannabis use and to remain on medications. Her family is supportive of discharge plan. Objective - General Observations Appearance: Well Groomed Stature: Thin Posture: WNL Eye Contact: Average Behavior/Activity: WNL - Interaction Observations Attitude Towards Examiner: Cooperative Stated Mood: Euthymic Affect: Full Speech Pattern/Tone: Clear, Appropriate, Normal Volume Thought Process: Coherent, Goal Directed Perception: WNL Thought Content: WNL Hallucination Type: Denies Delusion Type: Denies - Cognitive Function Orientation: A&O x 4 Level of Consciousness: Alert Cognition: WNL Estimated Intelligence: Normal Insight: WNL Judgment Within Normal Limits: Yes - Medication Compliance Cooperative with Inpatient Medication Regimen: Yes - Group Participation Participates in Group Activities: Partial DC Assessment - Assessment Clinical Impression: 23yo wf with extensive psychiatric history [facility]. She has been non-adherent to outpatient treatment and was referred to ED by her father due to suicidal ideation and psychosis. She was informed of team pursuing Treatment Over Objection and has since been medication compliant. Therefore, TOO was discontinued. Patient no longer meets criteria for inpatient psychiatric hospitalization. Merits Inpatient Hospitalization: No Clear for Discharge: Adequate Clinical Respons, Acceptable Safety Profile Inpatient DSM-V Dx: F31.64 Discharge Planning - Discharge Planning Discharge Plan: Outpatient Follow Up Outpatient Program: [facility] Recommendations for Continuing Care: Medication Management, Psychotherapy, Substance Abuse Counseling, Primary Care Followup Medications: Current Medications Invega Sustenna: first booster dose of 234mg given on 12/23/18. second booster dose of 156mg due between 12/26-12/30/18. monthly IM dose per outpatient psychiatrist [facility]: 600mg PO qhs Ondansetron HCl (Zofran Odt Tab*) 4 mg PO Q6H PRN PRN Reason: NAUSEA/VOMITING Last Admin: 12/25/18 10:34 Dose: 4 mg Zolpidem Tartrate (Ambien Tab*) 10 mg PO BEDTIME PRN PRN Reason: INSOMNIA Last Admin: 12/24/18 20:01 Dose: 10 mg Discharge Planning: Prescriptions provided for discharge [x] Yes [] No Follow up care details as per social work arrangements: [facility] physician referral to establish primary care Patient response to discharge plan: [x] eager for discharge [x] agreeable with discharge plan [] ambivalent about discharge [] disagrees with discharge today
--- NOTE | 2018-12-27 00:46 | DS ---
CC: [facility] * DISCHARGE SUMMARY: DATE OF ADMISSION: 12/14/18 DATE OF DISCHARGE: 12/25/18 SUPERVISING PSYCHIATRIST: Dr. Ravindra Ray.* (DICTATED BY MADELYN LEONG NP) DISCHARGE DIAGNOSES: 1. Bipolar 1 disorder, most recent episode, manic with psychotic features. 2. Cannabis use disorder. 3. Nicotine use disorder. CONDITION AT TIME OF DISCHARGE: Improved. The patient is euthymic and well related. She has been medication compliant and in behavioral control. She denies auditory or visual hallucinations. There are no perceptual disturbances noted. She denies SI or passive wish. She endorses agreement to return to live with family, friends on a farm near [place]. She reports looking forward to assisting with the care of animals. She reports intent to refrain from cannabis use and to remain on current medications. Her family is notified and supportive of the discharge plan. The patient is discharged to home with her aunt. MENTAL STATUS EXAM: Claudette is a 23-year-old white female, thin framed, appeared stated age. She is well groomed and casually dressed in her own clothing. She is wearing large spectacles and is wearing moderate amount of makeup. Eye contact is good. Patient is pleasant and cooperative. She is alert and oriented x3. Speech is soft, articulate and spontaneous. No abnormal psychomotor activity noted. Mood is euthymic. Affect is full range. Insight and judgment are fair. Fund of knowledge is excellent. INSTRUCTIONS GIVEN TO PATIENT: A. Medications: 1. Invega Sustenna first booster of 234 mg given on 12/23/18. Second booster dose of 156 mg due between 12/26/18 and 12/30/18. This was electronically prescribed to [facility] with instructions to be delivered to [facility]. 2. Fullerton ER 600 mg p.o. q.h.s. 3. Ondansetron 4 mg p.o. q.6 hours p.r.n. 4. Ambien 10 mg p.o. q.h.s. p.r.n. insomnia. B. Diet: Regular. C. Activities: Ambulation as tolerated. Tobacco cessation is declined by patient. There are no pending labs or diagnostic studies. D. Followup Care: Patient will follow up with [facility] and has an appointment the day after discharge with psychiatrist, Dr. Blanco Boo. She was given information about the [facility] physician referral line to establish primary care. E. Substance use followup: Patient declined offer of referrals for substance use treatment. There is not a FDA approved medication for cannabis use disorder. HOSPITAL COURSE - PART A: Reason for admission: The patient presented to the emergency department with her father due to suicidal ideation and manic behaviors. History of present illness: Claudette is a 23-year-old, single, employed, domiciled, female, who was referred by her father after she expressed suicidal ideation and could not contract for safety. The patient's aunt who lives in [facility] because aware that the patient was not doing well, that she had not been sleeping for days, had been acting manic, going on a shopping spree, getting numerous tattoos, not paying her rent and not going to work. She informed the patient's father, who lives in [place]. The patient's father came to [facility] and found the patient rather depressed, tearful, not talking to him until the day prior to admission when she told her father that she "was leaving because she cannot live in her body anymore." Patient reportedly agreed to have her father transported to the hospital. According to collateral information, the patient has had numerous hospitalizations in the [place] area and has a history of nonadherence with outpatient treatment and taking prescribed medications. Past psychiatric history: The patient's father reported the patient has had 4 inpatient psychiatric admission starting at age 21. The most recent was in last January in 2017. She has had 2 admissions at [facility] in [place] and 2 others at [facility]. She has also attended a partial program in [place], [place] and a long-term facility called [facility] in [place], [place]. Patient has outpatient care at [facility] with Dr. Braden Boo. On arrival, she was prescribed Rexulti 3 mg daily, Fullerton 600 mg p.o. b.i.d., quetiapine 600 mg at bedtime, and Wellbutrin XL 300 mg daily. Patient had taken herself off medications completely 2 weeks prior to admission and she had missed several appointments with the psychiatrist. HOSPITAL COURSE - PART B: Psychiatric Treatment Rendered: The patient was admitted to the adult behavioral services unit on involuntary status. Code status is full. She was placed on 15-minute checks for her safety. We restarted the patient on lithium. She only agreed to take Seroquel for sleep. Patient irritable, initially refusing to meet with treatment providers. She agreed to me about "how to get out of here." She endorses anger at her parents for bringing her to the hospital as she vowed to never do so again. She denied alcohol or drug use despite collateral information to the contrary. During conversation, the patient presented as labile and response to internal stimuli. She denies offer of medication adjustments other than desire for Adderall for concentration and distractibility. Due to patient's impaired insight and judgement and nonadherence to treatment, we started the process to pursue treatment over objection. When notified of this process, the patient states "please don't put me on Depakote." She was otherwise labile and tangential. Per staff, she was disruptive in the milieu and made derogatory comments to select peers. She also made provocative statements during groups. Patient started taking prescribed medications. She told staff that she was a virus and needed to be eliminated. She endorsed auditory hallucinations. We obtained lithium level when the patient was medication compliant and this was therapeutic at 0.64. The patient and I discussed the potential for long-acting injectable medication due to history of noncompliance. She was agreeable to this. We did an oral trial of paliperidone at 6 mg daily. She tolerated this well. She showed rapid improvement in organized thinking. She reported difficulty with sleep for which Benadryl was ineffective. We titrated Ambien to 10 mg and she reported this was helpful. The patient received the Invega Sustenna first initial injection on 12/23/18. Due to her medication compliance , TOO was discontinued. The patient's father was present for family meeting with this bond underwriter and 7th grade social studies teacher. Her father was able to provide collateral information in regards to patient's ineffective coping prior to hospitalization. We discussed concern of cannabis use especially in bipolar disorder. We discussed the patient's strength and that she is a very intelligent young woman and the patient was encouraged to remain in treatment in order to pursue future independence and clear goals. Patient reported stomach upset, nausea, and constipation. She was encouraged to use MiraLax. She also reported symptoms likely due to hospital food and that she eats more fruits and vegetables normally. On the day of admission, the patient reported readiness for discharge. She was eager to return to the farm as stated above. She was encouraged to call with any questions or concerns after hospitalization. She inquired about Wellbutrin and lorazepam. I encouraged her to discuss this further with her outpatient psychiatrist. MADELYN LEONG, RIP/MOULD OPERATOR [id number]/CPS #: [id number] ANDRES
== END 2018-12-25 16:15 | disposition home or self-care (01) | DRG 753 ==
LOC: ED 20:48 → BSU 12-14 02:35 → ED 12-14 04:10
PROVIDERS: ADMIT Psychiatry & Neurology Psychiatry; ATTEND Psychiatry & Neurology Psychiatry
DX: F31.2 Bipolar disorder, current episode manic severe with psychotic features (principal); R45.851 Suicidal ideations; Z91.14 Patient's other noncompliance with medication regimen; F12.90 Cannabis use, unspecified, uncomplicated; F17.210 Nicotine dependence, cigarettes, uncomplicated; K59.00 Constipation, unspecified
CPT/HCPCS: 36415; 80053; 80061; 80178; 80320; 80329; 83036; 84443; 84702; 85025; 90853; 99222; 99232; 99233; 99285; A9270-GY; G0480; J2426

== ENCOUNTER 2019-02-02 19:07 | Inpatient (IN) | payer BC, MEDICAID ==
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
[2019-02-02] MEDS ORDERED: Haloperidol INJ IV/IM* 5 MG/ML AMP IM ONE (21:24)
[2019-02-02] MEDS ORDERED: diPHENhydraMINE IV* 50 MG/ML 1 ml VIAL (BENADRYL) IM ONE (21:24)
[2019-02-02] MEDS ORDERED: LORazepam INJ* 2 MG/ML 1 ML VIAL IM ONE (21:24)
[2019-02-02] MEDS ORDERED: Lorazepam PYXIS KEY PRN (21:24)
[2019-02-02 21:39] LABS: ABS Eosinophils 0.2 10^3/ul (0-0.6); ABS Lymphocytes 3.6 10^3/ul (1.0-4.8); ABS Monocytes 0.7 10^3/ul (0-0.8); ABS Neutrophils 3.5 10^3/ul (1.5-7.7); Eosinophil % 2.2 %; Hematocrit 37 % (35-47); Hemoglobin 12.2 g/dL (12.0-16.0); Lymphocyte % 45.5 %; Mean Corpuscular HGB Conc 33 g/dL (31-36); Mean Corpuscular Hemoglobin 32 pg (27-31); Mean Corpuscular Volume 95 fL (80-97); Mean Platelet Volume 9.7 fL (7.4-10.4); Platelet Count 208 10^3/uL (150-450); Red Blood Count 3.86 10^6 /uL (3.70-4.87); Red Cell Distribution Width 13 % (10-15); White Blood Count 7.9 10^3/uL (3.5-10.8)
[2019-02-02 21:55] LABS: ALT 12 U/L (7-52); AST 12 U/L (13-39); Albumin 3.7 g/dL (3.2-5.2); Albumin/Globulin Ratio 1.4 (1-3); Alkaline Phosphatase 56 U/L (34-104); Anion Gap 5 mmol/L (2-11); BUN/Creatinine Ratio 12.8 (8-20); Blood Urea Nitrogen 11 mg/dL (6-24); CO2 Carbon Dioxide 25 mmol/L (22-32); Calcium 9.2 mg/dL (8.6-10.3); Chloride 109 mmol/L (101-111); EGFR African American 98.1 (>60); EGFR Non-African American 81.1 (>60); Globulin 2.6 g/dL (2-4); Glucose 112 mg/dL (70-100); Potassium 3.7 mmol/L (3.5-5.0); Sodium 139 mmol/L (135-145); Total Protein 6.3 g/dL (6.4-8.9)
[2019-02-02 22:01] LABS: Urine Appearance Cloudy; Urine Bilirubin Negative (Negative); Urine Blood Negative (Negative); Urine Color Yellow; Urine Glucose Negative (Negative); Urine Ketones Negative (Negative); Urine Nitrite Negative (Negative); Urine Protein Negative (Negative); Urine Specific Gravity 1.011 (1.010-1.030); Urine Urobilinogen Negative (Negative)
[2019-02-02 22:02] LABS: HCG Pregnancy < 0.60 mIU/mL
[2019-02-02 22:10] LABS: Urine Benzodiazepine Screen None Detected (None Detect); Urine Opiates Screen None Detected (None Detect)
[2019-02-02 22:18] LABS: Acetaminophen < 15 mcg/mL; Alcohol < 10 mg/dL (<10); Salicylate < 2.50 mg/dL (<30)
[2019-02-02 22:35] LABS: TSH (Thyroid Stimulating Horm) 0.93 mcIU/mL (0.34-5.60)
[2019-02-03] MEDS ORDERED: LORazepam INJ* 2 MG/ML 1 ML VIAL ONE (00:10)
[2019-02-03] MEDS ORDERED: Acetaminophen TAB* 325 MG PO PRN (02:31)
[2019-02-03] MEDS ORDERED: Al Hydrox/Mg Hydrox/Simet LIQ* 30 ML UDC PO PRN (02:32)
[2019-02-03] MEDS: Multivitamins/Minerals TAB PO SCH (09:43)
[2019-02-03] MEDS ORDERED: Haloperidol TAB* 2 MG PO PRN (14:31)
[2019-02-03] MEDS ORDERED: Haloperidol TAB* 5 MG ONE (14:35)
[2019-02-03] MEDS ORDERED: LORazepam TAB(*) 1 MG ONE (14:35)
[2019-02-03] MEDS: LORazepam TAB(*) 1 MG PO PRN (14:39)
[2019-02-03] MEDS ORDERED: Haloperidol TAB* 5 MG PO PRN (14:47)
[2019-02-03] MEDS ORDERED: diPHENhydraMINE PO* 50 MG PO PRN (15:56)
[2019-02-03] MEDS ORDERED: diPHENhydraMINE IV* 50 MG/ML 1 ml VIAL (BENADRYL) IM ONE (19:10)
[2019-02-03] MEDS ORDERED: Ziprasidone IM INJ* 20 MG/ML VIAL IM ONE (19:10)
[2019-02-03] MEDS ORDERED: Ziprasidone IM INJ* 20 MG/ML VIAL ONE (19:14)
[2019-02-03] MEDS: Paliperidone ER TAB* 6 MG TAB.ER PO SCH (20:38)
[2019-02-03] MEDS ORDERED: Lithium Carbonate TAB* 300 MG PO SCH (21:00)
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
[2019-02-04] MEDS: Multivitamins/Minerals TAB PO SCH (11:08)
[2019-02-04] MEDS ORDERED: Paliperidone SUSTENNA* 156 MG/1 ML IM ONE (11:25)
[2019-02-04] MEDS ORDERED: Lithium Carbonate TAB* 300 MG PO ONE (11:28)
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
[2019-02-04] MEDS: LORazepam TAB(*) 1 MG PO PRN (14:01)
[2019-02-04] MEDS: Paliperidone ER TAB* 6 MG TAB.ER PO SCH (20:59)
[2019-02-04] MEDS: Lithium Carbonate TAB* 300 MG PO SCH (20:59)
[2019-02-05] MEDS: Lithium Carbonate TAB* 300 MG PO SCH ×2 (11:24→20:19)
[2019-02-05] MEDS: Multivitamins/Minerals TAB PO SCH (11:24)
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
[2019-02-05] MEDS: LORazepam TAB(*) 1 MG PO PRN (19:10)
[2019-02-05] MEDS: Paliperidone ER TAB* 6 MG TAB.ER PO SCH (20:19)
[2019-02-05] MEDS: diPHENhydraMINE PO* 50 MG PO PRN (20:21)
[2019-02-06 10:53] LABS: HDL Cholesterol 48.7 mg/dL
[2019-02-06] MEDS: Multivitamins/Minerals TAB PO SCH (10:59)
[2019-02-06] MEDS: Lithium Carbonate TAB* 300 MG PO SCH ×2 (10:59→20:58)
[2019-02-06 11:24] LABS: Lithium 0.81 mmol/L (0.6-1.2)
--- NOTE | 2019-02-06 16:13 | PN ---
Subjective - Subjective Date of Service: 02/06/19 Service Type: [id number] Hosp care 15 min low complexity Subjective: Patient continues to present as labile with poor impulse control. Last evening , she was making multiple phone calls in an aggressive manner and unable to exhibit distress tolerance. She is circumstantial about her cat and her boyfriend. She does not recall recent violent behaviors. Objective - General Observations Appearance: Unkempt Stature: Thin Posture: Slumped Eye Contact: Average Behavior/Activity: Slowed - Interaction Observations Attitude Towards Examiner: Cooperative, Anxious Stated Mood: Dysphoric Affect: Flat Speech Pattern/Tone: Delayed, Quiet Volume Thought Process: Loose Associations, Circumstantial, Impoverished Perception: WNL Thought Content: Depressive, Paranoid Thought Process: Lethality: Paranoid Ideation Hallucination Type: Denies Delusion Type: Persecution, Grandeur - Cognitive Function Orientation: A&O x 4 Level of Consciousness: Alert Cognition: WNL Estimated Intelligence: Normal Insight: Difficulty Acknowledging Presence of Psyciatric Problems Judgment Within Normal Limits: No Ability to Make Reasonable Decisions: Serverely Impaired - Medication Compliance Cooperative with Inpatient Medication Regimen: Yes - Group Participation Participates in Group Activities: Partial Assessment - Assessment Merits Inpatient Hospitalization: For Immediate Safety, For Stabilization, Consolidate Improvements, For Discharge Planning Inpatient DSM-V Dx: F31.2 Clinical Impression: 24yo wf with extensive psychiatric history and multiple admissions in [facility] due to bipolar I d/o. She has been non-adherent to outpatient treatment since discharge from our unit in the beginning of December 2018. She presented to ED via [facility] due to disorganized and bizarre activity in the community, speaking word salad and has been aggressive to family and animals. The patient merits hospitalization for immediate safety and stabilization. Plan - Plan Treatment Plan: Name: JUN WHEELER Birthdate: 1995 [id number] continue acute intensive psychiatric treatment. give Invega sustenna 156mg today, continue oral coverage at 6mg qhs. continue lithium 600mg BID. lithium level on am of 02/06/19 of 81.0. continue other medications, as ordered. Medications: Current Medications Acetaminophen (Tylenol Tab*) 650 mg PO Q4H PRN PRN Reason: PAIN; OR TEMP >101 Al Hydrox/Mg Hydrox/Simethicone (Maalox Plus*) 30 ml PO Q4H PRN PRN Reason: INDIGESTION Diphenhydramine HCl (Benadryl Po*) 50 mg PO Q4H PRN PRN Reason: AGITATION Last Admin: 02/05/19 20:21 Dose: 50 mg Haloperidol (Haldol Tab*) 5 mg PO Q6H PRN PRN Reason: AGITATION [place] Carbonate ([place]aron Carbonate Tab*) 600 mg PO BID [facility] Last Admin: 02/06/19 10:59 Dose: 600 mg Lorazepam (Ativan Tab(*)) 2 mg PO Q4H PRN PRN Reason: ANXIETY Last Admin: 02/05/19 19:10 Dose: 2 mg Miscellaneous (Ativan Pyxis Rolle) 1 ea N/A .ATIVAN IV ROLLE PRN PRN Reason: PYXIS ROLLE Multivitamins/Minerals (Theragran/Minerals Tab*) 1 tab PO DAILY [facility] Last Admin: 02/06/19 10:59 Dose: 1 tab Paliperidone (Invega Er Tab*) 6 mg PO BEDTIME [facility] Last Admin: 02/05/19 20:19 Dose: 6 mg - Discharge Plan Discharge Plan: Inpatient Hospitalization
[2019-02-06] MEDS: LORazepam TAB(*) 1 MG PO PRN (18:28)
[2019-02-06] MEDS: Paliperidone ER TAB* 6 MG TAB.ER PO SCH (20:59)
[2019-02-06] MEDS: diPHENhydraMINE PO* 50 MG PO PRN (21:00)
[2019-02-07] MEDS: Lithium Carbonate TAB* 300 MG PO SCH ×2 (09:59→20:27)
[2019-02-07] MEDS: Multivitamins/Minerals TAB PO SCH (10:00)
--- NOTE | 2019-02-07 11:47 | PN ---
Subjective - Subjective Date of Service: 02/07/19 Service Type: [id number] Hosp care 25 min moderate complexity Subjective: Claudette is seen in coverage for [employer]. Claudette is pleasant and is agreeable to talking. She would really like staff pass and the use of the computer, which was decided in treatment team to be more beneficial if delayed until behavior improves. Objective - General Observations Appearance: Disheveled Appears Stated Age: Yes Stature: Thin Posture: WNL Eye Contact: Average Behavior/Activity: WNL - Interaction Observations Attitude Towards Examiner: Cooperative, Ingratiating, Manipulative Stated Mood: Dysphoric Affect: Blunted Speech Pattern/Tone: Clear Thought Process: Disorganized Perception: WNL Thought Content: WNL Hallucination Type: None, Denies Delusion Type: Denies - Cognitive Function Orientation: A&O x 4 Level of Consciousness: Awake, Alert, Appropriate Estimated Intelligence: Normal Insight: Mostly Blames Others for Problems Judgment Within Normal Limits: No Ability to Make Reasonable Decisions: Moderately Impaired - Group Participation Participates in Group Activities: Partial Assessment - Assessment Merits Inpatient Hospitalization: For Immediate Safety Inpatient DSM-V Dx: F31.2 Clinical Impression: 24yo wf with extensive psychiatric history and multiple admissions in [facility] due to bipolar I d/o. She has been non-adherent to outpatient treatment since discharge from our unit in the beginning of December 2018. She presented to ED via [facility] due to disorganized and bizarre activity in the community, speaking word salad and has been aggressive to family and animals. The patient merits hospitalization for immediate safety and stabilization. Plan - Plan Treatment Plan: Name: CLAUDETTE WHEELER Birthdate: 1995 [id number] continue acute intensive psychiatric treatment. give Invega sustenna 156mg today, continue oral coverage at 6mg qhs. continue lithium 600mg BID. lithium level on am of 02/06/19 of 81.0. continue other medications, as ordered. Medications: Current Medications Acetaminophen (Tylenol Tab*) 650 mg PO Q4H PRN PRN Reason: PAIN; OR TEMP >101 Al Hydrox/Mg Hydrox/Simethicone (Maalox Plus*) 30 ml PO Q4H PRN PRN Reason: INDIGESTION Diphenhydramine HCl (Benadryl Po*) 50 mg PO Q4H PRN PRN Reason: AGITATION Last Admin: 02/06/19 21:00 Dose: 50 mg Haloperidol (Haldol Tab*) 5 mg PO Q6H PRN PRN Reason: AGITATION [place] Carbonate ([place] Carbonate Tab*) 600 mg PO BID [facility] Last Admin: 02/07/19 09:59 Dose: 600 mg Lorazepam (Ativan Tab(*)) 2 mg PO Q4H PRN PRN Reason: ANXIETY Last Admin: 02/06/19 18:28 Dose: 2 mg Miscellaneous (Ativan Pyxis Rolle) 1 ea N/A .ATIVAN IV ROLLE PRN PRN Reason: PYXIS ROLLE Multivitamins/Minerals (Theragran/Minerals Tab*) 1 tab PO DAILY [facility] Last Admin: 02/07/19 10:00 Dose: 1 tab Paliperidone (Invega Er Tab*) 6 mg PO BEDTIME [facility] Last Admin: 02/06/19 20:59 Dose: 6 mg
--- NOTE | 2019-02-07 12:03 | PN ---
BSU: Group Therapy Note - Service Type Service Type: [id number] Group Psychotherapy - Cognitive Behavioral Group Therapy ( CBT):Patient attended CBT programming this morning and presented with flat affect that did not vary with discussion. Although responsive to direct prompts to respond to questions, patient did not engage in spontaneous conversation.
[2019-02-07] MEDS: LORazepam TAB(*) 1 MG PO PRN (18:05)
[2019-02-07] MEDS: diPHENhydraMINE PO* 50 MG PO PRN (19:50)
[2019-02-07] MEDS: Paliperidone ER TAB* 6 MG TAB.ER PO SCH (20:28)
[2019-02-08] MEDS: Multivitamins/Minerals TAB PO SCH (10:49)
[2019-02-08] MEDS: Lithium Carbonate TAB* 300 MG PO SCH ×2 (10:49→20:52)
[2019-02-08] MEDS: LORazepam TAB(*) 1 MG PO PRN (20:52)
[2019-02-08] MEDS: Paliperidone ER TAB* 6 MG TAB.ER PO SCH (20:53)
[2019-02-08] MEDS: diPHENhydraMINE PO* 50 MG PO PRN (20:54)
[2019-02-09] MEDS: Multivitamins/Minerals TAB PO SCH (10:30)
[2019-02-09] MEDS: Lithium Carbonate TAB* 300 MG PO SCH ×2 (10:30→20:33)
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
[2019-02-09] MEDS: Paliperidone ER TAB* 6 MG TAB.ER PO SCH (20:33)
[2019-02-09] MEDS: LORazepam TAB(*) 1 MG PO PRN (20:38)
[2019-02-09] MEDS: diPHENhydraMINE PO* 50 MG PO PRN (20:39)
[2019-02-10] MEDS: Lithium Carbonate TAB* 300 MG PO SCH ×2 (10:29→20:34)
[2019-02-10] MEDS: Multivitamins/Minerals TAB PO SCH (10:29)
--- NOTE | 2019-02-10 11:49 | PN ---
BSU: Group Therapy Note - Service Type Service Type: [id number] Group Psychotherapy - Cognitive behavioral group note: Claudette was attentive and participatory in programming, becoming tearful when discussing immediate plans to return home to [place], stating "all my friends are up here". She was consoled by a peer, and engaged in conversation in a coherent fashion. She described intentions of moving back to [place] at some point in the future.
--- NOTE | 2019-02-10 12:14 | PN ---
Subjective - Subjective Date of Service: 02/10/19 Service Type: 33064 Hosp care 25 min moderate complexity Subjective: Patient reports her father is arriving tomorrow to assist in discharge planning. She states he "wants her to go home to [place] for a month." Pt reports agreement with this plan and hopes to return to [place] and gain assistance through [facility]. Phone call to [facility] for update. Referral received, SPOA meeting pending tomorrow. Objective - General Observations Appearance: Well Groomed Appears Stated Age: Yes Stature: Thin Posture: WNL Eye Contact: Average Behavior/Activity: WNL - Interaction Observations Attitude Towards Examiner: Cooperative Stated Mood: Euthymic Affect: Bright Speech Pattern/Tone: Clear, Appropriate, Quiet Volume Thought Process: Coherent Perception: WNL Thought Content: WNL Hallucination Type: Denies Delusion Type: Denies - Cognitive Function Orientation: A&O x 4 Level of Consciousness: Alert Cognition: WNL Estimated Intelligence: Normal Insight: WNL Judgment Within Normal Limits: Yes Ability to Make Reasonable Decisions: Mildly Impaired - Medication Compliance Cooperative with Inpatient Medication Regimen: Yes - Group Participation Participates in Group Activities: Yes Assessment - Assessment Merits Inpatient Hospitalization: For Immediate Safety, For Stabilization, For Discharge Planning, Pending Safe DC Plan Inpatient DSM-V Dx: F31.2 Clinical Impression: 24yo wf with extensive psychiatric history and multiple admissions in [facility] due to bipolar I d/o. She has been non-adherent to outpatient treatment since discharge from our unit in the beginning of December 2018. She presented to ED via [facility] due to disorganized and bizarre activity in the community, speaking word salad and has been aggressive to family and animals. The patient merits hospitalization for immediate safety and stabilization. Plan - Plan Treatment Plan: Name: JUN WHEELER Birthdate: 1995 [id number] continue acute intensive psychiatric treatment. given Invega sustenna 156mg on 02/04/19; continue oral coverage at 6mg until next injection. continue lithium 600mg BID. lithium level on am of 02/06/19 of 81.0. continue other medications, as ordered. Medications: Current Medications Acetaminophen (Tylenol Tab*) 650 mg PO Q4H PRN PRN Reason: PAIN; OR TEMP >101 Al Hydrox/Mg Hydrox/Simethicone (Maalox Plus*) 30 ml PO Q4H PRN PRN Reason: INDIGESTION Diphenhydramine HCl (Benadryl Po*) 50 mg PO Q4H PRN PRN Reason: AGITATION Last Admin: 02/09/19 20:39 Dose: 50 mg Haloperidol (Haldol Tab*) 5 mg PO Q6H PRN PRN Reason: AGITATION [place] Carbonate ([place] Carbonate Tab*) 600 mg PO BID [facility] Last Admin: 02/10/19 10:29 Dose: 600 mg Lorazepam (Ativan Tab(*)) 2 mg PO Q4H PRN PRN Reason: ANXIETY Last Admin: 02/09/19 20:38 Dose: 2 mg Miscellaneous (Ativan Pyxis Rolle) 1 ea N/A .ATIVAN IV ROLLE PRN PRN Reason: PYXIS ROLLE Multivitamins/Minerals (Theragran/Minerals Tab*) 1 tab PO DAILY [facility] Last Admin: 02/10/19 10:29 Dose: 1 tab Paliperidone (Invega Er Tab*) 6 mg PO BEDTIME [facility] Last Admin: 02/09/19 20:33 Dose: 6 mg - Discharge Plan Discharge Plan: Inpatient Hospitalization
[2019-02-10] MEDS: LORazepam TAB(*) 1 MG PO PRN (19:24)
[2019-02-10] MEDS: diPHENhydraMINE PO* 50 MG PO PRN (20:35)
[2019-02-10] MEDS: Paliperidone ER TAB* 6 MG TAB.ER PO SCH (20:35)
[2019-02-11] MEDS: Lithium Carbonate TAB* 300 MG PO SCH ×2 (11:09→20:24)
[2019-02-11] MEDS: Multivitamins/Minerals TAB PO SCH (11:09)
[2019-02-11 12:16] VITALS: BP 92/51
[2019-02-11] MEDS: LORazepam TAB(*) 1 MG PO PRN (19:59)
[2019-02-11] MEDS: Paliperidone ER TAB* 6 MG TAB.ER PO SCH (20:23)
[2019-02-11] MEDS: diPHENhydraMINE PO* 50 MG PO PRN (20:23)
[2019-02-12] MEDS: Lithium Carbonate TAB* 300 MG PO SCH ×2 (09:46→20:29)
[2019-02-12] MEDS: Multivitamins/Minerals TAB PO SCH (09:46)
--- NOTE | 2019-02-12 12:22 | PN ---
Subjective - Subjective Date of Service: 02/12/19 Service Type: 24535 Hosp care 35 min high complexity Subjective: Patient participated in nearly 2-hour family meeting with her father and his sister during which ACT team leaders discussed their program. Patient reports desire to work with ACT and remain on [facility] waiting list for supportive housing. Much discussion surrounded her family's concern for her ability to discharge and remain safe/healthy without supervision. Team members discussed recommendations for continued treatment, including substance use counseling. Patient praised for honest communication in regards to enjoying diana and cannabis use. Discussed ways in which she can be in control of symptom management. Objective - General Observations Appearance: Well Groomed Stature: Thin Posture: WNL Eye Contact: Average Behavior/Activity: WNL - Interaction Observations Attitude Towards Examiner: Cooperative Stated Mood: Euthymic Affect: Blunted Speech Pattern/Tone: Clear, Appropriate, Normal Volume Thought Process: Goal Directed, Circumstantial Perception: WNL Thought Content: WNL Hallucination Type: Denies Delusion Type: Denies - Cognitive Function Orientation: A&O x 4 Level of Consciousness: Alert Cognition: WNL Estimated Intelligence: Normal Insight: Difficulty Acknowledging Presence of Psyciatric Problems Judgment Within Normal Limits: No Ability to Make Reasonable Decisions: Mildly Impaired - Medication Compliance Cooperative with Inpatient Medication Regimen: Yes - Group Participation Participates in Group Activities: Partial Assessment - Assessment Merits Inpatient Hospitalization: For Immediate Safety, For Stabilization, For Discharge Planning, Pending Safe DC Plan Inpatient DSM-V Dx: F31.2 Clinical Impression: 24yo wf with extensive psychiatric history and multiple admissions in [facility] due to bipolar I d/o. She has been non-adherent to outpatient treatment since discharge from our unit in the beginning of December 2018. She presented to ED via [facility] due to disorganized and bizarre activity in the community, speaking word salad and has been aggressive to family and animals. The patient merits hospitalization for immediate safety and stabilization. Plan - Plan Treatment Plan: Name: JUN WHEELER Birthdate: 1995 [id number] continue acute intensive psychiatric treatment. may decrease to q30min obs, allow computer use and staff pass. given Invega sustenna 156mg on 02/04/19; DC oral coverage. continue lithium 600mg BID. lithium level on am of 02/06/19 of 81.0. continue other medications, as ordered. Medications: Current Medications Acetaminophen (Tylenol Tab*) 650 mg PO Q4H PRN PRN Reason: PAIN; OR TEMP >101 Al Hydrox/Mg Hydrox/Simethicone (Maalox Plus*) 30 ml PO Q4H PRN PRN Reason: INDIGESTION Diphenhydramine HCl (Benadryl Po*) 50 mg PO Q4H PRN PRN Reason: AGITATION Last Admin: 02/11/19 20:23 Dose: 50 mg Haloperidol (Haldol Tab*) 5 mg PO Q6H PRN PRN Reason: AGITATION [place] Carbonate ([place] Carbonate Tab*) 600 mg PO BID [facility] Last Admin: 02/12/19 09:46 Dose: 600 mg Lorazepam (Ativan Tab(*)) 2 mg PO Q4H PRN PRN Reason: ANXIETY Last Admin: 02/11/19 19:59 Dose: 2 mg Miscellaneous (Ativan Pyxis Rolle) 1 ea N/A .ATIVAN IV ROLLE PRN PRN Reason: PYXIS ROLLE Multivitamins/Minerals (Theragran/Minerals Tab*) 1 tab PO DAILY [facility] Last Admin: 02/12/19 09:46 Dose: 1 tab Paliperidone (Invega Er Tab*) 6 mg PO BEDTIME JEB Last Admin: 02/11/19 20:23 Dose: 6 mg - Discharge Plan Discharge Plan: Inpatient Hospitalization
[2019-02-12] MEDS: LORazepam TAB(*) 1 MG PO PRN (19:02)
[2019-02-12] MEDS: diPHENhydraMINE PO* 50 MG PO PRN (20:28)
[2019-02-12] MEDS: Paliperidone ER TAB* 6 MG TAB.ER PO SCH (20:29)
[2019-02-13] MEDS: Lithium Carbonate TAB* 300 MG PO SCH ×2 (09:57→19:56)
[2019-02-13] MEDS: Multivitamins/Minerals TAB PO SCH (09:57)
[2019-02-13] MEDS: LORazepam TAB(*) 1 MG PO PRN ×2 (13:06→19:09)
[2019-02-13] MEDS ORDERED: traZODone TAB* 100 MG PO SCH (21:00)
[2019-02-14] MEDS: Multivitamins/Minerals TAB PO SCH (09:15)
[2019-02-14] MEDS: Lithium Carbonate TAB* 300 MG PO SCH (09:15)
--- NOTE | 2019-02-14 11:03 | DCNOTE ---
Subjective - Subjective Service Types: 92580 Hosp DC Day Mgmt complex over 30 min Discharge Date: 02/14/19 Subjective: Patient eager to be discharged and agrees to discuss plans with treatment providers and family. Patient referred to a PHP near her father's home in [place] with an intake on Sunday, 02/17. Patient reports desire to remain on waitlist for [facility] and return to [place]. Patient and father encouraged to remain in contact with local ACT team. We discussed medications, means restriction and safety planning. Patient and father encouraged to continue to partner and involve each other in treatment planning. Discussed rationale, including patient being empowered and motivated to continue recovery. Objective - General Observations Appearance: Well Groomed Stature: Thin Posture: WNL Eye Contact: Average Behavior/Activity: WNL - Interaction Observations Attitude Towards Examiner: Cooperative, Anxious Stated Mood: Euthymic Affect: Full Speech Pattern/Tone: Clear, Appropriate, Normal Volume Thought Process: Coherent, Goal Directed Perception: WNL Thought Content: WNL Hallucination Type: Denies Delusion Type: Denies - Cognitive Function Orientation: A&O x 4 Level of Consciousness: Alert Cognition: WNL Estimated Intelligence: Normal Insight: WNL Judgment Within Normal Limits: Yes - Medication Compliance Cooperative with Inpatient Medication Regimen: Yes - Group Participation Participates in Group Activities: Partial DC Assessment - Assessment Clinical Impression: 24yo wf with extensive psychiatric history and multiple admissions in [facility] due to bipolar I d/o. She has been non-adherent to outpatient treatment since discharge from our unit in the beginning of December 2018. She presented to ED via [facility] due to disorganized and bizarre activity in the community, speaking word salad and has been aggressive to family and animals. Patient has resumed outpatient medications, including DUPONT and has stabilized in this setting. She is agreeable to outpatient recommendations. Merits Inpatient Hospitalization: No Clear for Discharge: Adequate Clinical Respons, Acceptable Safety Profile Inpatient DSM-V Dx: F31.2 Discharge Planning - Discharge Planning Discharge Plan: Outpatient Follow Up Recommendations for Continuing Care: Medication Management, Psychotherapy, Substance Abuse Counseling, Routine Metabolic Monitoring, Therapeutic Drug Levels, Primary Care Followup Medications: Current Medications Invega Sustenna 156mg IM qmonth- due March 04, 2019 [place] Carbonate ([place] Carbonate Tab*) 600 mg PO BID JEB Trazodone HCl (Desyrel Tab*) 100 mg PO BEDTIME JEB Last Admin: 02/13/19 19:56 Dose: 100 mg Discharge Planning: Prescriptions provided for discharge [x] Yes [] No Follow up care details as per social work arrangements. Patient response to discharge plan: [x] eager for discharge [x] agreeable with discharge plan [] ambivalent about discharge [] disagrees with discharge today
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
== END 2019-02-14 12:45 | disposition home or self-care (01) | DRG 753 ==
LOC: ED 19:07 → BSU 02-03 00:59
PROVIDERS: ADMIT Psychiatry & Neurology Psychiatry; ATTEND Psychiatry & Neurology Psychiatry
PROC: GZHZZZZ Group Psychotherapy (ICD-10-PCS; principal; 2019-02-07)
DX: F31.2 Bipolar disorder, current episode manic severe with psychotic features (principal); L70.9 Acne, unspecified; H52.10 Myopia, unspecified eye; F41.9 Anxiety disorder, unspecified; F90.9 Attention-deficit hyperactivity disorder, unspecified type; F50.9 Eating disorder, unspecified; F12.90 Cannabis use, unspecified, uncomplicated; F43.10 Post-traumatic stress disorder, unspecified; Z68.20 Body mass index [BMI] 20.0-20.9, adult; Z91.5 Personal history of self-harm; Z88.8 Allergy status to other drugs, medicaments and biological substances; Z91.013 Allergy to seafood; Z81.8 Family history of other mental and behavioral disorders; Z56.0 Unemployment, unspecified
CPT/HCPCS: 36415; 80053; 80061; 80178; 80307; 80320; 80329; 81003; 83036; 84443; 84702; 85025; 90853; 99222; 99231; 99232; 99233; 99238; 99284; A9270-GY; G0480; J1200; J2060; J2426; J3486